=== PATIENT | male | born 1990 | race Hispanic/Latino ===

== ENCOUNTER 2017-12-30 19:42 | Emergency (ER) | payer OTHER ==
[~2017-12-30] VITALS: Ht 165.1 cm; Wt 109.8 kg
[2017-12-30 19:53] VITALS: BP 137/85
[2017-12-30] MEDS ORDERED: FLEXERIL10 MG PO (22:19)
== END 2017-12-30 22:27 | disposition home or self-care (01) ==
LOC: EME 19:42
DX: S20.229A Contusion of unspecified back wall of thorax, initial encounter (principal); Y04.2XXA Assault by strike against or bumped into by another person, initial encounter; F84.0 Autistic disorder; Z87.891 Personal history of nicotine dependence
CPT/HCPCS: 72070; 99281; 99284